=== PATIENT | male | born 1945 ===

== ENCOUNTER 2025-04-04 12:26 | Emergency (ER) | payer OTHER, SELFPAY ==
[2025-04-04 12:29] VITALS: BP 188/90; PULSE 72; RESP 20; TEMP 36.3; O2SAT 98
--- NOTE | 2025-04-04 13:02 | NUR.NOTE ---
Spoke with patient who stated that the car record clerk for [employer] was not working today. Spoke with the Consulting Manager for [employer] and she had already spoken with the patient and is out of town and unable to look up the status of the dogs vaccinations. She has his information. Nursing Note:
--- NOTE | 2025-04-04 14:33 | NUR.NOTE ---
Rabies vaccination orders faxed to [facility]. Day 3: 04/07/25. Day 7: 04/11/25. Day 14: 04/18/25. Nursing Note:
--- NOTE | 2025-04-04 14:43 | W.ED.GENAD ---
Discharge Plan Disposition Patient Disposition: Home Condition: Stable Discharge Details Clinical Impression: Dog bite, Rabies, need for prophylactic vaccination against Primary Care Provider: Unknown,Unknown ED Provider: Cele Munoz Home Meds and New Rx's Prescriptions: New cefuroxime axetil 500 mg tablet 500 mg PO BID 5 Days Qty: 10 0RF doxycycline hyclate 100 mg capsule 100 mg PO BID Qty: 10 0RF Continued amlodipine 10 mg tablet 10 mg PO DAILY hydroxychloroquine 100 mg tablet 100 mg PO BID methotrexate sodium 5 mg tablet 5 mg PO QWEEK carbidopa-levodopa [Sinemet] 25-100 mg tablet 1 tab PO TID Discharge Instructions Instructions: Animal Bites ED, Rabies Vaccine [facility] [place] Vaccine Information Statement (VIS) Additional Instructions: You received rabies immunoglobulin and rabies vaccine today for a bite with unknown vaccine status Animal control will call you when they are able to confirm rabies status of animal, if that dog is vaccinated with the current rabies vaccine there is no need to complete the additional rabies vaccines. Please take the antibiotic as prescribed Keep wound clean and dry wash with soap and water once to twice daily You will return on day 04/07, 04/11, and April 18, 2025 for additional rabies vaccines Stand Alone Forms: Portal Information HPI General Date/Time Provider Initiated Documentation: 04/04/25 12:39. HPI Narrative: This 80-year-old male with a history of rheumatoid arthritis and hypertension with Parkinson's presents with report of dog bite yesterday. 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 Reportedly was trying to assist her into her house and a dog bit his left arm. He did not realize he had been bitten until he looked under his shirt and noticed blood where the dog latched onto his arm. He denies any significant discomfort but states he was concerned as he is unable to determine the rabies vaccine status of the animal. His tetanus is reportedly up-to-date. He denies any additional complaints including no strength or sensation changes. Related Data Home Medications ?Medication ?Instructions ?Recorded ?Confirmed amlodipine 10 mg tablet 10 mg PO DAILY 04/04/25 04/04/25 carbidopa 25 mg-levodopa 100 mg 1 tab PO TID 04/04/25 04/04/25 tablet (Sinemet) cefuroxime axetil 500 mg tablet 500 mg PO BID 5 days #10 tabs 04/04/25 doxycycline hyclate 100 mg capsule 100 mg PO BID #10 caps 04/04/25 hydroxychloroquine 100 mg tablet 100 mg PO BID 04/04/25 04/04/25 methotrexate sodium 5 mg tablet 5 mg PO QWEEK 04/04/25 04/04/25 Previous Rx's ?Medication ?Instructions ?Recorded cefuroxime axetil 500 mg tablet 500 mg PO BID 5 days #10 tabs 04/04/25 doxycycline hyclate 100 mg capsule 100 mg PO BID #10 caps 04/04/25 Allergies Allergy/AdvReac Type Severity Reaction Status Date / Time Penicillins Allergy Intermediate Rash Verified 04/04/25 12:33 General Stated Complaint: Laceration GARTH: 4 Exam Narrative Exam Narrative: 80-year-old male, no acute distress, small puncture wound noted to dorsal aspect of left forearm, neurovascularly intact flexion extension of wrist intact no palpable foreign body Course Vital Signs Vital signs: Vital Signs Temperature 36.3 C L 04/04/25 12:29 Pulse 72 04/04/25 12:29 Respiratory Rate 20 04/04/25 12:29 Blood Pressure 188/90 H 04/04/25 12:29 Pulse Oximetry 98 04/04/25 12:29 Temperature 36.3 C L 04/04/25 12:29 Pulse 72 04/04/25 12:29 Respiratory Rate 20 04/04/25 12:29 Blood Pressure 188/90 H 04/04/25 12:29 Blood Pressure Position Sitting 04/04/25 12:29 Pulse Oximetry 98 04/04/25 12:29 Oxygen Delivery Method Room Air 04/04/25 12:29 Oxygen Flow Rate 0 04/04/25 12:29 Medical Decision Making 80-year-old male presenting for rabies prophylaxis as unable to contact animal control and mariam. Unfortunately it sounds like animal husbandman will not return until Wednesday. In the interim there is no way to confirm the dog's rabies vaccines. We will initiate rabies immunoglobulin and vaccine until we have further information. Patient will return for rabies vaccines on the , , and . Patient is allergic to penicillin so I did initiate doxycycline and cefuroxime for antibiotic. PFSH All Active Problems (Updated 04/04/25 @ 14:26 by JESS Weems) Rabies, need for prophylactic vaccination against (Acute) Dog bite (Acute) Social History Smoking risk assessment performed?: No
[2025-04-04 14:57] VITALS: BP 162/83; PULSE 68; RESP 18; O2SAT 98
[2025-04-04] MEDS: Rabies Immune Globulin 300 UNIT/ML VIAL 1950 UNIT IM (15:06)
[2025-04-04] MEDS: Rabies vaccine (PCEC)/PF 2.5 UNITS/ML VIAL IM (15:06)
== END 2025-04-04 14:59 | disposition home or self-care (01) ==
PROVIDERS: Emergency Provider Physician Assistant
DX: S50.872A Other superficial bite of left forearm, initial encounter (principal); W54.0XXA Bitten by dog, initial encounter
CPT/HCPCS: 99283; 99284; 90471; 96372; 90375; 90675

== ENCOUNTER 2025-04-11 13:30 | Outpatient (RCR) | payer OTHER, SELFPAY ==
[2025-04-07] MEDS: Rabies vaccine (PCEC)/PF 2.5 UNITS/ML VIAL IM (13:45)
[2025-04-07 14:13] VITALS: BP 124/75; PULSE 82; RESP 17; TEMP 36.7; O2SAT 96
[2025-04-11] MEDS: Rabies vaccine (PCEC)/PF 2.5 UNITS/ML VIAL IM (11:56)
== END 2025-04-11 23:59 | disposition home or self-care (01) ==
LOC: INF 13:30
PROVIDERS: Visit Provider Physician Assistant
DX: Z20.3 Contact with and (suspected) exposure to rabies (principal); Z29.14 Encounter for prophylactic rabies immune globulin
CPT/HCPCS: 90471; 90675